=== PATIENT | female | born 1985 | race Caucasian/White ===

== ENCOUNTER 2016-07-18 07:57 | Day surgery (SDC) | payer OTHER ==
[2016-07-16 15:08] VITALS: BMI 36.8
[2016-07-18] MEDS ORDERED: MIDAZOLAM HCL 2 MG/2 ML SINGLE DOSE VIAL ONE (09:26)
[2016-07-18] MEDS ORDERED: ceFAZolin SODIUM 1 GM VIAL ONE ×2 (09:26→10:08)
[2016-07-18] MEDS ORDERED: PROPOFOL 20 ML ONE (09:26)
[2016-07-18] MEDS ORDERED: ROCURONIUM BROMIDE 50 MG/5 ML VIAL ONE (09:26)
[2016-07-18] MEDS ORDERED: DEXAMETHASONE SOD PHOSPHATE 4 MG/1 ML VIAL ONE (09:26)
[2016-07-18] MEDS ORDERED: BUPIVACAINE HCL/PF 0.25% (2.5MG/ML) 10 ML VIAL ONE (09:27)
[2016-07-18] MEDS ORDERED: GENTAMICIN SO4 80 MG/2 ML VIAL ONE (09:41)
[2016-07-18] MEDS ORDERED: CEFAZOLIN 2 GM in DEXTROSE 5%-WATER - 100 ML IVPB ONE (09:46)
--- NOTE | 2016-07-18 09:47 | HP ---
History & Physical Update - History History: No Change - Physical Physical: No Change - Assessment Assessment: No Change - Plan Plan: No Change
[2016-07-18] MEDS ORDERED: ceFAZolin SODIUM 1 GM VIAL IVPB ONE ×2 (10:02)
[2016-07-18] MEDS ORDERED: GLYCOPYRROLATE 0.2 MG/1 ML VIAL ONE (10:51)
[2016-07-18] MEDS ORDERED: NEOSTIGMINE METHYLSULFATE 0.5 MG/ML - 10 ML MDV ONE (10:51)
[2016-07-18] MEDS ORDERED: BUPIVACAINE HCL/PF 0.25% (2.5MG/ML) 10 ML VIAL IJ ONE (11:10)
[2016-07-18] MEDS ORDERED: IBUPROFEN 800 MG/8 ML IJ IVPB PRN (11:14)
[2016-07-18] MEDS ORDERED: ONDANSETRON 4 MG/2 ML VIAL IVPUSH PRN (11:14)
[2016-07-18] MEDS ORDERED: LACTATED RINGERS SOLUTION 1,000 ML IV SCH (11:15)
[2016-07-18] MEDS ORDERED: ACETAMINOPHEN 1000 MG/100 ML VIAL (NON FORMULARY) IVPB PRN (11:16)
[2016-07-18] MEDS ORDERED: oxyCODONE HCL 5 MG TABLET PO PRN (11:17)
--- NOTE | 2016-07-18 11:34 | OP ---
Operative Note - Note: Operative Date: 07/18/16 Pre-Operative Diagnosis: Morbid obesity Operation: Laparoscopic gastric band Implants: Gastric band and port Post-Operative Diagnosis: Same as Pre-op Surgeon: Hamilton Hutchinson Toxicology Teacher: Shivam Doan Anesthesiologist/GIS MAPPING TECHNICIAN: Shanell Wing Anesthesia: General Estimated Blood Loss (mls): 5 Fluid Volume Replaced (mls): 800 Operative Report Dictated: Yes
[2016-07-18] MEDS ORDERED: ONDANSETRON 4 MG/2 ML VIAL IVPB PRN (11:35)
[2016-07-18] MEDS ORDERED: ENOXAPARIN NA (PORCINE) 40 MG/0.4 ML DISP.SYRIN SQ ONE (11:35)
[2016-07-18] MEDS ORDERED: HYDROmorphone HCL CARPU-JECT 1 MG/1 ML DISP.SYRIN IVPB PRN (11:35)
--- NOTE | 2016-07-18 11:35 | SURG ---
Surgery Echocardiography Radiology Technologist Note Echocardiography Radiology Technologist: Shivam Doan PA-C Date of Service: 07/18/16 Diagnosis: Morbid obesity Procedure: Laparoscopic gastric band I was present for the entirety of the operative procedure. For further detail, please refer to operative report. Visit type - Case Type Case Type: Scheduled Admission - New patient This patient is new to me today: Yes Date on this admission: 07/18/16
[2016-07-18] MEDS: HYDROmorphone HCL CARPU-JECT 2 MG/1 ML DISP.SYRIN IVPUSH PRN ×2 (11:43→11:53)
[2016-07-18] MEDS ORDERED: SODIUM CHLORIDE 1,000 ML IV SCH (11:45)
--- NOTE | 2016-07-18 12:00 | HP ---
[facility] - Chief Complaint Chief Complaint: Morbid Obesity History Source: Patient Limitations to Obtaining History: No Limitations - Past Medical History Allergies/Adverse Reactions: Allergies Allergy/AdvReac Type Severity Reaction Status Date / Time No Known Drug Allergies Allergy Verified 07/16/16 15:10 ...LMP: 07/04/16 - Current Medications Current Medications: Home Medications Medication Instructions Recorded Calcium Carbonate [Calcium] 500 mg PO DAILY 07/16/16 Multivitamins [Tab-A-Vit -] 1 tab PO DAILY 07/16/16 Famotidine [Pepcid] 20 mg PO BID #60 tablet MDD 2 07/18/16 Oxycodone HCl/Acetaminophen 1 tab PO Q4H PRN #20 tablet MDD 6 07/18/16 [Percocet 5-325 mg Tablet] Satellite Physical Exam - Physical Examination Vital Signs: Vital Signs Period Temp Pulse Resp BP Sys/[place] Pulse Ox Last 24 Hr 97.7 F 78 20 105/69 General Appearance: Well Nourished Lung: Clear to auscultation Heart: Regular rate & rhythm Abdomen: Soft, No tenderness Neurological: Alert, Oriented Satellite Impression/Plan - Impression/Plan Impression: Morbid Obesity Operative Procedure: Laparoscopic possible open placement of gastric band Date to be Performed: 07/18/16
[2016-07-18 12:25] LABS: MCH 25.5 pg (25.7-33.7); MCHC 31.6 g/dl (32.0-36.0); MEAN CELL VOLUME 80.8 fl (80-96); MEAN PLT VOLUME 8.1 fl (7.5-11.1); PLATELET COUNT 319 K/MM3 (134-434); RDW 14.4 % (11.6-15.6); WHITE BLOOD COUNT 17.8 K/mm3 (4.0-10.0)
[2016-07-18 12:32] LABS: CREATININE 0.9 mg/dL (0.55-1.02)
[2016-07-18 13:35] VITALS: TEMP 98.7
[2016-07-18 14:00] VITALS: PULSE 82
[2016-07-18 16:20] VITALS: BP 130/68
[2016-07-18] MEDS ORDERED: FAMOTIDINE 20 MG/50 ML IVPB 50 ML IVPB SCH (22:00)
--- NOTE | 2016-07-19 08:21 | SPEC ---
DATE OF OPERATION: 07/18/2016 SURGEON: Augie Hutchinson MD CARBON CLEANER: DARREN Barth PREOPERATIVE DIAGNOSIS: Morbid obesity. POSTOPERATIVE DIAGNOSIS: Morbid obesity. PROCEDURE: Laparoscopic gastric band placement. ANESTHESIA: GET. ESTIMATED BLOOD LOSS: 30 mL. DRAINS: None. IMPLANT: AP Lap-Band Standard with Low-Profile Port. REASON FOR PROCEDURE: This is a 30-year-old female who presented to the office for evaluation for bariatric surgery. After discussing the different options, she decided to proceed with a laparoscopic, possible open, placement of a gastric band. The patient was seen by the respective subspecialties and cleared for surgery. The risks and benefits of the procedure were explained. These included bleeding, infection, hernia, TN, DVT, PE, injury to surrounding structures including the liver, colon, bowel, spleen, esophagus, vessel injury, nerve injury, weight regain, obstruction, gastric band slip, gastric band erosion, port site slip, port site infection, vitamin deficiency, hair loss, and as some of the possible complications. The patient understood and signed informed consent. DESCRIPTION OF PROCEDURE: The patient was placed supine on the operating room table. The patient underwent general endotracheal intubation. The arms were brought out 90 degrees and secured. A footboard was placed, and the legs were secured laterally with padding. The abdomen was prepped and draped in the usual sterile fashion. Time-out was performed. An incision was made in the left upper quadrant. Entrance to the abdominal cavity was attained under direct visualization with the optical 5mm trocar. Pneumoperitoneum was established. Inspection of the abdominal cavity was performed with a laparoscopic camera. Subsequently, in the right upper quadrant to the right of midline, a 15-mm trocar was inserted. A 5-mm trocar placed further laterally in the right upper quadrant. A 12-mm trocar was placed below the left costal margin. A stab wound was made in the subxiphoid area, and a Holly clamp inserted and removed to dilate the tract. Alexander Liver Retractor was then inserted. The post was secured at the bedside by the nursing staff. The patient was placed in steep reverse Trendelenburg position, and the Alexander Liver Retractor was used to secure the liver to the anterior abdominal wall. The fundus of the stomach was noted and grasped towards the patients right side and caudad. The overlying omentum was also retracted downwards, as well. Electrocautery was used to score the peritoneum over the left esophagogastric junction freeing this area until the left megan of the diaphragm was noted. The stomach was then pulled laterally to the patients left side, and the caudate lobe of the liver was identified. The pars flaccida was identified, and an opening created within it. The right megan of the diaphragm was noted. In addition, the caudate lobe of the liver was retracted in order to note that the inferior vena cava was away from the field. The peritoneum anterior to the right megan was scored with electrocautery, and a laparoscopic dissection was used to gently make a tunnel from the right to the left megan until it was free in the left upper quadrant of the abdomen. The gastric band was then chosen and prepped by the surgical supply assistant. This was then placed within the abdominal cavity. The band tubing was placed into the laparoscopic dissector, which was pulled and withdrawn to the patients right side. The band tubing was placed within the band buckle and secured, securing the band around the stomach. The band was noted to be in good position and not too tight around the stomach. The stomach was then imbricated over the band. An Endo Stitch was used to grab the body of the stomach and secure it to itself imbricating the stomach over the band. Hemostasis was noted. The band tubing was then brought out of the 15-mm trocar. The Alexander Liver Retractor was removed under direct visualization. The pneumoperitoneum was desufflated, and all trocars were removed. The skin at the 15-mm trocar site was extended, and dissection continued until the anterior fascia was identified. Four 2-0 Prolene sutures were placed in the fascia. The end of the band tubing was cut and removed and sent off the field. The port was secured to the band tubing. The port was secured to the fascia using four 2-0 Prolene sutures. Hemostasis was again noted. Antibiotic irrigation was placed in all wounds and marked within all incision sites and Marcaine was injected in all incision sites. A 3-0 Vicryl suture was used to close the deep subcutaneous tissue at this area. Then, 4-0 Biosyn was used to close all incision sites. Sterile dressings were applied. The patient tolerated the procedure well and was transferred to the recovery room in stable condition. AUGIE HUTCHINSON M.D. [id number] MTDD
== END 2016-07-18 16:26 | disposition home or self-care (01) ==
LOC: JASU-SURG 07:57 → EDSTATUS 11:00 → JASU-SURG 16:26
PROVIDERS: ATTEND Surgery
PROC: 0DV64CZ Restriction of Stomach with Extraluminal Device, Percutaneous Endoscopic Approach (ICD-10-PCS; principal; 2016-07-18 09:30)
DX: E66.01 Morbid (severe) obesity due to excess calories (principal); G47.30 Sleep apnea, unspecified
CPT/HCPCS: 36415; 74241-TC; 80048; 85027; 94010; 94760

== ENCOUNTER 2016-11-12 21:48 | Emergency (ER) | payer OTHER ==
[2016-11-12 21:53] VITALS: BP 129/65; PULSE 80; TEMP 97.9; BMI 35.2
[2016-11-12] MEDS ORDERED: CYCLOBENZAPRINE HCL 10 MG TABLET (FP) PO ONE (22:14)
[2016-11-12] MEDS ORDERED: CYCLOBENZAPRINE HCL 10 MG TABLET (FP) ONE (22:14)
[2016-11-12] MEDS ORDERED: KETOROLAC TROMETHAMINE 30 MG/1 ML VIAL ONE (22:14)
[2016-11-12] MEDS ORDERED: KETOROLAC TROMETHAMINE 30 MG/1 ML VIAL IM ONE (22:14)
--- NOTE | 2016-11-12 22:14 | PDOC ---
History of Present Illness - General History Source: Patient Exam Limitations: No Limitations - History of Present Illness Initial Comments: 11/12/16 22:17 Patient is a 30 year old female with a pmhx of asthma who presents today with lower back pain. Patient states that the pain radiates to the right buttocks. Patient states that she was pushing a shopping cart and a felt snap in her lower back. She reports pain with movement worse with ROM to the right. Patient denies any numbness or tingling. She denies any bowel or urinary incontinance. <Maryanne Villareal - Last Filed: 11/12/16 22:16> <Bindu Martinez - Last Filed: 11/12/16 22:34> - General Chief Complaint: Back Pain Stated Complaint: BACK PAIN Time Seen by Provider: 11/12/16 22:07 Past History <Maryanne Villareal - Last Filed: 11/12/16 22:16> - Past Medical History Asthma: Yes (NO RECENT ATTACK-ONLY WHEN SICK) COPD: No Diabetes: Yes HTN: No Hypercholesterolemia: No Suicide Attempt (Hx): No - Surgical History Abdominal Surgery: Yes (EGD) Cholecystectomy: Yes - Immunization History Immunization Up to Date: Yes - Psycho/Social/Smoking Cessation Hx Anxiety: No Suicidal Ideation: No Smoking Status: No Smoking History: Never smoked Have you smoked in the past 12 months: No Number of Cigarettes Smoked Daily: 10 If you are a former smoker, when did you quit?: 01/2014 Cigars Per Day: 0 Information on smoking cessation initiated: No 'Breaking Loose' booklet given: 01/14/15 Hx Alcohol Use: No Drug/Substance Use Hx: No Substance Use Type: None <Bindu Martinez - Last Filed: 11/12/16 22:34> - Past Medical History Allergies/Adverse Reactions: Allergies Allergy/AdvReac Type Severity Reaction Status Date / Time No Known Drug Allergies Allergy Verified 11/12/16 21:53 Home Medications: Ambulatory Orders Calcium Carbonate [Calcium] 500 mg PO DAILY 07/16/16 Multivitamins [Tab-A-Vit -] 1 tab PO DAILY 07/16/16 Famotidine [Pepcid] 20 mg PO BID #60 tablet MDD 2 07/18/16 Oxycodone HCl/Acetaminophen [Percocet 5-325 mg Tablet] 1 tab PO Q4H PRN #20 tablet MDD 6 07/18/16 Cyclobenzaprine HCl [Flexeril 10 mg] 10 mg PO TID PRN #14 tablet 11/12/16 Ibuprofen 600 mg PO QID PRN #20 tablet 11/12/16 Review of Systems - Review of Systems Able to Perform ROS?: Yes Comments:: 11/12/16 22:17 CONSTITUTIONAL: Absent: fever, no chills, no fatigue EYES: Absent: visual changes ENT: Absent: ear pain, no sore throat CARDIOVASCULAR: Absent: chest pain, no palpitations RESPIRATORY: Absent: cough, no SOB GI: Absent: abdominal pain, no nausea, no vomiting, no constipation, no diarrhea GENITOURINARY: Absent: dysuria, no frequency, no hematuria MUSCULOSKELETAL: Present: back pain Absent: no arthralgia, no myalgia SKIN: Absent: rash <Maryanne Villareal - Last Filed: 11/12/16 22:16> *Physical Exam - Vital Signs Last Vital Signs Temp Pulse Resp BP Pulse Ox 97.9 F 80 18 129/65 99 11/12/16 21:50 11/12/16 21:50 11/12/16 21:50 11/12/16 21:50 11/12/16 21:50 - Physical Exam Comments: 11/12/16 22:17 GENERAL: Well-appearing, well-nourished. No apparent distress. HEENT: Normocephalic, atraumatic. PERRL, EOM intact. CARDIOVASCULAR: Normal S1, S2. Regular rate and rhythm. PULMONARY: Clear to auscultation bilaterally. ABDOMEN: Soft, non-distended, non-tender. MUSCULOSKELETAL: (+) Pain to the lower back worse with ROM to the right. EXTREMITIES: (+) Able to flex and extend, flexion is slightly compromised. No gross deformities. SKIN: Warm, dry. No rash NEUROLOGICAL: No focal neurological deficits. <Maryanne Villareal - Last Filed: 11/12/16 22:16> - Vital Signs Last Vital Signs Temp Pulse Resp BP Pulse Ox 97.9 F 80 18 129/65 99 11/12/16 21:50 11/12/16 21:50 11/12/16 21:50 11/12/16 21:50 11/12/16 21:50 <Bindu Martinez - Last Filed: 11/12/16 22:34> *DC/Admit/Observation/Transfer - Attestations Scribe Attestion: 11/12/16 22:17 Documentation prepared by KARAN Pelaez, acting as biomedical service engineer for Bindu Martinez NP. <Maryanne Villareal - Last Filed: 11/12/16 22:16> <Bindu Martinez - Last Filed: 11/12/16 22:34> Diagnosis at time of Disposition: Lower back pain Qualifiers: Chronicity: acute Back pain laterality: bilateral Sciatica presence: without sciatica Qualified Code(s): M54.5 - Low back pain Low back strain Qualifiers: Encounter type: initial encounter Qualified Code(s): S39.012A - Strain of muscle, fascia and tendon of lower back, initial encounter - Discharge Dispostion Disposition: HOME - Prescriptions Prescriptions: Cyclobenzaprine HCl [Flexeril 10 mg] 10 mg PO TID PRN #14 tablet PRN Reason: Muscle Spasms Ibuprofen 600 mg PO QID PRN #20 tablet PRN Reason: Back Pain - Referrals Referrals: Danny Soliz [Primary Care Provider] - David Connolly MD [Staff Physician] - - Patient Instructions Printed Discharge Instructions: DI for Low Back Pain Additional Instructions: take flexeril as prescribed for muscle spasms. do not drive or operate heavy machinery after taking this medication. follow up with your orthopedic as soon as possible. return to the ER if symptoms worsen. - Post Discharge Activity Work/School Note: Back to Work
== END 2016-11-12 22:39 | disposition home or self-care (01) ==
LOC: JERFT 21:48 → JER 21:48 → JERFT 22:39
PROC: 3E0233Z Introduction of Anti-inflammatory into Muscle, Percutaneous Approach (ICD-10-PCS; principal; 2016-11-12)
DX: S39.012A Strain of muscle, fascia and tendon of lower back, initial encounter (principal); X50.9XXA Other and unspecified overexertion or strenuous movements or postures, initial encounter; Y93.89 Activity, other specified; Y92.89 Other specified places as the place of occurrence of the external cause; J45.909 Unspecified asthma, uncomplicated; E11.9 Type 2 diabetes mellitus without complications
CPT/HCPCS: 96372; 99281-25

== ENCOUNTER 2023-05-04 01:37 | Emergency (ER) | payer BC, OTHER ==
[2023-05-04 01:53] VITALS: BP 133/86; PULSE 94; RESP 16; TEMP 99; BMI 32.8
== END 2023-05-04 03:18 | disposition home or self-care (01) ==
LOC: FER 01:37
DX: S93.432A Sprain of tibiofibular ligament of left ankle, initial encounter (principal); M25.572 Pain in left ankle and joints of left foot; X50.1XXA Overexertion from prolonged static or awkward postures, initial encounter
CPT/HCPCS: 73610-TC-LT-FY; 99283-25